=== PATIENT | male | born 1985 | race African-American/Black ===

== ENCOUNTER 2024-01-11 00:35 | Emergency (ER) | payer OTHER ==
[~2024-01-11] VITALS: Ht 170.2 cm; Wt 87.5 kg
[2024-01-11 01:12] VITALS: BP 137/90; PULSE 85; RESP 18; TEMP 99; O2SAT 95
[2024-01-11] MEDS ORDERED: AMOX1TAB8 PO (01:56)
== END 2024-01-11 02:01 | disposition home or self-care (01) ==
LOC: MED 00:35
DX: J02.9 Acute pharyngitis, unspecified (principal)
CPT/HCPCS: 99283